=== PATIENT | female | born 1985 | race Caucasian/White ===

== ENCOUNTER 2018-12-20 16:39 | Emergency (ER) | payer BC ==
--- NOTE | 2018-12-20 17:08 | EDM.PDOC ---
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 She landed on her hands and knees, but was worried with the new onset brown-red discharge x1 and intermittent sharp vaginal pain. She has not had any discharge/bleeding since. She has no other symptoms at this time. This is her first . Her OB is Dr. Mendez. She states she has an appointment tomorrow at 2pm with her if deemed necessary. 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 ED EXAM - Physical Exam Exam: See Below Exam Limited By: No Limitations General Appearance: Alert, WD/WN, No Apparent Distress Eye Exam: Bilateral Eye: EOMI, Normal Inspection, PERRL Ears: Normal External Exam, Hearing Grossly Normal Nose: Normal Inspection, Normal Mucosa, No Blood Throat/Mouth: Normal Inspection, Normal Lips, Normal Teeth, Normal Gums, Normal Oropharynx, Normal Voice, No Airway Compromise Head: Atraumatic, Normocephalic Neck: Normal Inspection, Supple, Non-Tender, Full Range of Motion Respiratory/Chest: No Respiratory Distress, Lungs Clear, Normal Breath Sounds, No Accessory Muscle Use, Chest Non-Tender Cardiovascular: Normal Peripheral Pulses, Regular Rate, Rhythm, No Edema, No Gallop, No JVD, No Murmur, No Rub GI/Abdominal Exam: Normal Bowel Sounds, Soft, Non-Tender, No Organomegaly, No Distention, No Abnormal Bruit, No Mass, Pelvis Stable. No: Guarding, Rebound, Tender Fundal Height In cm: 14 Rectal Exam: Deferred Back Exam: Normal Inspection, Full Range of Motion, NT Extremities: Normal Inspection, Normal Range of Motion, Non-Tender, Normal Capillary Refill, No Pedal Edema Skin Exam: Warm, Dry, Intact, Normal Color, No Rash Course - Vital Signs Last Recorded V/S: Last Vital Signs Temp 98.2 F 12/20/18 16:57 Pulse 104 H 12/20/18 16:57 Resp 20 12/20/18 16:57 BP 133/80 12/20/18 16:57 Pulse Ox 99 12/20/18 16:57 - Orders/Labs/Meds Orders: Active Orders 24 hr Category Date Time Status OB Ltd 1 or More Fetus [US] Stat Exams 12/20/18 17:05 Taken - Re-Assessments/Exams Free Text/Narrative Re-Assessment/Exam: 12/20/18 17:06 I have ordered OB U/S 12/20/18 18:15 OB U/S has been done, report from radiology via phone was nothing acute seen. HR 149. Pending formal report. At this time, nothing emergent has been found, seems reasonable to send pt home and f/u with OBGYN for further workup/treatment. Departure - Departure Time of Disposition: 18:18 Disposition: Home, Self-Care 01 Condition: Good Clinical Impression: Vaginal pain, Spotting - Discharge Information *PRESCRIPTION DRUG MONITORING PROGRAM REVIEWED*: Not Applicable *COPY OF PRESCRIPTION DRUG MONITORING REPORT IN PATIENT GORGE: Not Applicable Instructions: Abnormal Uterine Bleeding, [id number], Pelvic Pain, Female, [id number] Referrals: Susan Mendez MD [Primary Care Provider] - Forms: ED Department Discharge Additional Instructions: You were seen in the ED today for new onset of spotting and sharp vaginal pains after falling on your hands and knees on ice. At this time, Ultrasound has shown nothing emergent and baby seems to be doing well. There are no other signs of emergency at this time, therefore seems reasonable to send you home and have you follow up with your OBGYN. Please return to ED if new or worsening symptoms. - My Orders Last 24 Hours: My Active Orders 12/20/18 17:05 OB Ltd 1 or More Fetus [US] Stat - Assessment/Plan Last 24 Hours: My Active Orders 12/20/18 17:05 OB Ltd 1 or More Fetus [US] Stat
--- NOTE | 2018-12-20 18:27 | US ---
Limited obstetrical ultrasound: Multiple real-time images were obtained transabdominally. Comparison: No prior imaging for current . Dates: LMP: LMP given as 09/05/18, [facility] 06/12/19, gestational age 15 weeks 1 day Current ultrasound: [facility] 06/17/19, gestational height 14 weeks 3 days presentation: Mobile Placenta: Posterior with no findings of placenta previa or abruption Amniotic fluid: Visually within normal limits Measurements: [place]-rump length: 7.52 cm - 13 weeks 4 days BPD: 2.83 cm - 15 weeks 1 day Head circumference: 10.41 cm - 14 weeks 6 days Abdominal circumference: 8.04 cm - 14 weeks 3 days Femur length: 1.31 cm - 13 weeks 6 days Estimated weight: 92 g (0 lbs. 3 oz.), estimated weight at the 3rd percentile Heart rate: 149 BPM Maternal ovaries: Within normal limits Impression: 1. Single intrauterine fetus currently in mobile presentation. Dates as noted above. 2. No complicating process is seen by ultrasound at this time. Diagnostic code #1
== END 2018-12-20 18:37 | disposition home or self-care (01) ==
LOC: JD.ED 16:39
DX: O20.9 Hemorrhage in early pregnancy, unspecified (principal); Z3A.19 19 weeks gestation of pregnancy; Z79.899 Other long term (current) drug therapy
CPT/HCPCS: 76815; 76815-26; 99282; 99284-25